=== PATIENT | female | born 1960 | race Caucasian/White ===

== ENCOUNTER 2024-04-07 14:23 | Emergency (ER) | payer SELFPAY ==
[2024-04-07 14:23] VITALS: BP 140/55; PULSE 73; RESP 14; TEMP 36.8; O2SAT 97; BMI 54.9
--- NOTE | 2024-04-07 14:25 | ED_ITS ---
<Statement entered by Hzael Mac DO - 04/09/24 15:15> I was consulted by the AIDEN, and we discussed the complexity of the problems being addressed. I approved the treatment and management plan for this patient's care in the emergency department, thus performing a substantive portion of the medical decision making. Hazel Mac DO Discharge Plan Disposition Patient Disposition: Home, Self-Care Condition: Good Referrals Follow up/Referrals: Provider,Referral, MD [Primary Care Provider] - See instructions Activity Restrictions/Add. Instructions Additional Instructions/Restrictions: Continue Tylenol and Motrin as needed for symptoms and soreness. You need to follow-up with your PCP for further investigation of the CAT scan findings today. They saw a questionable mass of undetermined significance in your left kidney. If your symptoms do not improve or you have worsening signs or symptoms please follow-up with your PCP or return to the ER as needed. Clinical Impressions Clinical Impression: Left kidney mass Fall Qualifiers: Encounter type: initial encounter Qualified Code(s): W19.XXXA - Unspecified fall, initial encounter Contusion of hip, right Qualifiers: Encounter type: initial encounter Qualified Code(s): S70.01XA - Contusion of right hip, initial encounter Print Language Print Language: Portuguese Discharge ED Provider: Ricardo Hathaway General Adult HPI General Chief complaint: PAIN Stated complaint: Fall Time Seen by Provider: 04/07/24 14:37 History of Present Illness HPI narrative: Patient presents for evaluation of an accidental fall. Patient states that she was sitting on a friend's bed at her personal skilled nursing and on attempting to arise from the bed slipped and fell landing on her right hip. She was unable to get up by herself and it took 5 people to get her on her feet. Patient states afterwards that she was able to ambulate normally with her walker. However since she had a fall she was sent to the ER for evaluation. Patient denies loss of consciousness neck pain headache altered level of consciousness or impaired mentation, she does report pain in the right thoracic rib cage posteriorly with no difficulty breathing and pain at the right hip with no numbness tingling in either lower extremity loss or motor or sensory. [facility] Disclaimer: The information contained in this section may have been updated after the patient was seen, as this information can be updated by other users. Social History Smoking Status: Never smoker alcohol intake: never current occupational status: retired and disabled Travel in the last 8 weeks: None ROS Obtained: Yes Systems reviewed as appropriate & no additional complaints except as documented Physical Exam General General appearance: alert and in no apparent distress Respiratory Respiratory exam: Present normal lung sounds bilaterally Cardiovascular Cardiovascular exam: Present regular rate Neurological Exam Neurological exam: Present alert and oriented X3 Medical Decision Making Medical Records Medical records reviewed: Yes I reviewed the patient's medical records. Screening: Per USPSTF and CDC recommendations, given the prevalence of disease in our region, it is our hospital?s policy to screen for HIV and viral Hepatitis for all patients aged 18 and over and those with ongoing risk factors. Kaden Inquiry Pt receiving controlled substance: No Vital Signs: 04/07/24 14:23 04/07/24 15:32 04/07/24 16:01 Temperature 98.2 F Temperature Source Oral Pulse Rate 67 68 Pulse Rate [Left] 73 Respiratory Rate 14 16 Blood Pressure 167/72 H 174/88 H Blood Pressure [Right Arm] 140/55 L Blood Pressure Mean 94 101 Blood Pressure Mean [Right Arm] 83 Blood Pressure Source Blood Pressure Source [Right Arm] Automatic Cuff Blood Pressure Position [Right Arm] Sitting 02 Sat by Pulse Oximetry 97 98 97 Oxygen Delivery Method Room Air 04/07/24 16:52 Temperature 98.2 F Temperature Source Oral Pulse Rate 80 Pulse Rate [Left] Respiratory Rate 18 Blood Pressure 160/85 H Blood Pressure [Right Arm] Blood Pressure Mean Blood Pressure Mean [Right Arm] Blood Pressure Source Automatic Cuff Blood Pressure Source [Right Arm] Blood Pressure Position [Right Arm] 02 Sat by Pulse Oximetry Oxygen Delivery Method Room Air Orders (Tests/Meds): ED MEDICATIONS Discontinued Medications Generic Name Dose Route Start Last Admin Trade Name Brain PRN Reason Stop Dose Admin Acetaminophen 1,000 mg 04/07/24 14:36 04/07/24 14:44 Acetaminophen 500mg Tab PO 04/07/24 14:37 1,000 mg ONCE ONE Administration Ibuprofen 800 mg 04/07/24 14:36 04/07/24 14:44 Ibuprofen 400 Mg Tablet PO 04/07/24 14:37 800 mg ONCE ONE Administration Lidocaine 1 each 04/07/24 14:36 04/07/24 14:44 Lidocaine 5% Transdermal Patch TP 04/07/24 14:37 1 each ONCE ONE Administration ORDERS Category Date Time Status CT bony pelvis Stat Cat Scan 04/07/24 14:[address] cervical spine wo con Stat Cat Scan 04/07/24 14:[address] head/brain wo con Stat Cat Scan 04/07/24 14:[address] lumbar spine wo con Stat Cat Scan 04/07/24 14:[address] thoracic spine wo con Stat Cat Scan 04/07/24 14:37 Completed Femur XR right 2 views [XR femur RT 2V] Stat Exams 04/07/24 14:53 Completed Medical Decision Narrative: In summary patient is a 64-year-old female who presents to the emergency department for evaluation of of a fall. Patient is hemodynamically stable upon arrival, afebrile. Physical exam is remarkable for right posterior rib pain and right hip pain. Patient is neurovascularly intact has no palpable bony deformities contusions abrasions or signs of trauma. Patient has full range of motion and no neurovascular deficit complaints in her bilateral lower extremities. She has no chest pain shortness of breath. Breath sounds are clear and equal bilaterally to the bases. No palpable bony deformities noted.. Differential diagnosis includes contusion versus fracture. Initial workup will be conducted with CT imagings of the dorsal spine pelvis and plain film x-rays of the femur. Initial interventions include Tylenol ibuprofen. Initial workup reviewed by me and my informal trepidation shows no acute fracture or deformity. Upon repeat evaluation patient reported modest improvement in her discomfort.. Given this patient is appropriate for discharge and is ambulatory at the time of discharge. Critical Care Critical Care Time Critical Care Time: No
--- NOTE | 2024-04-07 14:37 | CT_ITS ---
FINAL REPORT CLINICAL HISTORY: trauma, critical injury suspected COMPARISON: None FINDINGS: Axial CT images of the thoracic spine were obtained without contrast. Sagittal and coronal reformatted images were also obtained. This study was performed with techniques to keep radiation doses as low as reasonably achievable (ALARA). Individualized dose reduction techniques using automated exposure control or adjustment of mA and/or kV according to the patient's size were employed. There is no evidence of fracture. The vertebral alignment is normal. There is mild to moderate degenerative change. There is no evidence of significant canal stenosis. No paraspinous soft tissue abnormality is identified. IMPRESSION: No fracture or acute bony abnormality. No significant central canal stenosis. Reviewed, Interpreted and Dictated by Jace Hahn III, MD Transcribed by Yasmin Myrick Authenticated and [facility]
--- NOTE | 2024-04-07 14:37 | CT_ITS ---
FINAL REPORT TECHNIQUE: Axial imaging of the lumbar spine was obtained without contrast. Sagittal and coronal reformatted images were also obtained and reviewed. This study was performed with techniques to keep radiation doses as low as reasonably achievable (ALARA). Individualized dose reduction techniques using automated exposure control or adjustment of mA and/or kV according to the patient's size were employed. CLINICAL HISTORY: trauma, critical injury suspected COMPARISON: None FINDINGS: Images are suboptimal secondary to patient's body habitus. There is no fracture. The vertebral alignment is normal. There is moderate degenerative change. Moderate canal stenosis is noted at L4-5. Nonobstructing right renal stones are noted measuring up to 4 mm. The left kidney is not well-visualized but there is question of a mass in the upper pole. IMPRESSION: Multilevel degenerative change without acute bony abnormality. Questionable mass upper pole left kidney. This could be further evaluated with renal mass protocol CT. Reviewed, Interpreted and Dictated by Jace Hahn III, MD Transcribed by Yasmin Myrick Authenticated and [facility]
--- NOTE | 2024-04-07 14:37 | CT_ITS ---
FINAL REPORT CLINICAL HISTORY: trauma, critical injury suspected COMPARISON: None FINDINGS: Axial CT images of the cervical spine were obtained without contrast. Sagittal and coronal reformatted images were also obtained. This study was performed with techniques to keep radiation doses as low as reasonably achievable (ALARA). Individualized dose reduction techniques using automated exposure control or adjustment of mA and/or kV according to the patient's size were employed. Exam is suboptimal secondary to patient's body habitus. There is no evidence of fracture or dislocation. The bony alignment is normal. There is moderate degenerative change with multilevel osteophytes. There is no evidence of canal stenosis. No paraspinous soft tissue abnormality is seen. Limited images of the upper thorax are unremarkable. There is anterior displacement of the left mandibular condyle of uncertain significance. IMPRESSION: No fracture or acute bony abnormality of the cervical spine identified. Anterior displacement of the left mandibular condyle of uncertain significance. Reviewed, Interpreted and Dictated by Jace Hahn III, MD Transcribed by Yasmin Myrick Authenticated and [facility]
--- NOTE | 2024-04-07 14:37 | CT_ITS ---
FINAL REPORT CLINICAL HISTORY: trauma, critical injury suspected COMPARISON: None FINDINGS: Axial images of the head were obtained without contrast. Coronal reformatted images were also obtained.This study was performed with techniques to keep radiation doses as low as reasonably achievable (ALARA). Individualized dose reduction techniques using automated exposure control or adjustment of mA and/or kV according to the patient's size were employed. There is no evidence of intracranial hemorrhage or mass. There is moderate to severe atrophy, greater than expected for patient's age. There is no evidence of shift of the midline structures. No abnormal extra axial fluid collection is identified. No skull abnormality is seen on the bone window images. IMPRESSION: No acute intracranial abnormality. Moderate to severe atrophy, greater than expected for patient's age. Reviewed, Interpreted and Dictated by Jace Hahn III, MD Transcribed by Yasmin Myrick Authenticated and [facility]
--- NOTE | 2024-04-07 14:38 | CT_ITS ---
FINAL REPORT TECHNIQUE: Axial images through the pelvis were performed by computed tomography. Sagittal and coronal reconstruction images were performed. This study was performed with techniques to keep radiation doses as low as reasonably achievable (ALARA). Individualized dose reduction techniques using automated exposure control or adjustment of mA and/or kV according to the patient's size were employed. CLINICAL HISTORY: trauma, critical injury suspected COMPARISON: None FINDINGS: No fracture is identified. No dislocation identified. 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 No soft tissue abnormality. IMPRESSION: No acute process. Reviewed, Interpreted and Dictated by Jace Hahn III, MD Transcribed by Yasmin Myrick Authenticated and [facility]
[2024-04-07] MEDS: ACETAMINOPHEN 500MG TAB 1000 MG PO (14:44)
[2024-04-07] MEDS: LIDOCAINE 5% TRANSDERMAL PATCH 1 EACH TP (14:44)
[2024-04-07] MEDS: IBUPROFEN 400 MG TABLET 800 MG PO (14:44)
--- NOTE | 2024-04-07 14:53 | XR_ITS ---
FINAL REPORT CLINICAL HISTORY: fall, right upper leg pain COMPARISON: None FINDINGS: 3 views of the right femur were obtained. Exam is significantly limited secondary to patient body habitus. Knee arthroplasty is present. There is no acute fracture or dislocation. The joint spaces are well preserved. There is no acute soft tissue abnormality. IMPRESSION: No acute abnormality identified. Reviewed, Interpreted and Dictated by Jace Hahn III, MD Transcribed by Yasmin Myrick Authenticated and [facility]
[2024-04-07 15:32] VITALS: BP 167/72; PULSE 67; RESP 16; O2SAT 98
[2024-04-07 16:01] VITALS: BP 174/88; PULSE 68; O2SAT 97
--- NOTE | 2024-04-07 16:36 | INFXCTL.NOTE ---
UNABLE TO CONTACT STAFF AT [facility]. SPOKE WITH STAFF AT [facility], WILL ATTEMPT TO REACH STAFF FOR PT A RIDE BACK TO [facility]
--- NOTE | 2024-04-07 16:40 | PC.NURSE ---
[facility] SOMEONE [facility] PICK PT UP
[2024-04-07 16:52] VITALS: BP 160/85; PULSE 80; RESP 18; TEMP 36.8; O2SAT 96
== END 2024-04-07 16:58 | disposition home or self-care (01) ==
PROVIDERS: Emergency Provider Emergency Medicine
DX: N28.89 Other specified disorders of kidney and ureter (principal); S70.01XA Contusion of right hip, initial encounter; M25.551 Pain in right hip; R07.81 Pleurodynia; W01.0XXA Fall on same level from slipping, tripping and stumbling without subsequent striking against object, initial encounter; Y93.89 Activity, other specified; Y92.89 Other specified places as the place of occurrence of the external cause
CPT/HCPCS: 70450; 72125; 72128; 72131; 72192; 73552; 99284

== ENCOUNTER 2024-09-29 14:29 | Emergency (ER) | payer MEDICAID, SELFPAY ==
[2024-09-29] VITALS (10 sets, daily range): BP systolic 132–170; BP diastolic 48–85; PULSE 65–81; RESP 13–25; TEMP 36.9; O2SAT 94–98; BMI 56.5
--- NOTE | 2024-09-29 14:16 | ECG_ITS ---
APPROVED REPORT Exam: Resting ECG HR:77 bpm ECG Measurements Heart Rate 77 AXES DC 190 P 62 QRSd 145 QRS -67 QT 403 T 60 QTc 435 Conclusion Sinus rhythm Left axis deviation Electronically signed by : AHMET RUSHING, 09/29/2024 15:07:03
--- NOTE | 2024-09-29 14:25 | XR_ITS ---
FINAL REPORT CLINICAL HISTORY: Shortness of breath, cough, chest pain COMPARISON: None FINDINGS: A single view of the chest was obtained. The heart size is normal. The mediastinum is normal. There is minimal scarring or atelectasis at the right lung base. There are no pleural effusions. There is no pneumothorax. There is no osseous abnormality. IMPRESSION: Minimal scarring or atelectasis right lung base. Reviewed, Interpreted and Dictated by Trace Garrido MD Transcribed by Татьяна Dumont Authenticated and [facility]
--- NOTE | 2024-09-29 14:29 | [facility].EDCP ---
Discharge Plan Disposition Chief Complaint: Chest Pain Referrals Follow up/Referrals: Artis Martino APRN [Primary Care Provider] - See instructions Print Language Print Language: Panamanian Discharge ED Provider: Ricardo Hathaway HPI <Ricardo Hathaway MD - Last Filed: 09/29/24 14:58> General Chief Complaint: Chest Pain Stated Complaint: Chest Pain Time Seen by Provider: 09/29/24 14:30 History of Present Illness HPI narrative: Please note that above description of symptoms, in this electronic medical record under categorization of recalled from ER triage doctor by RN are reflective of an initial nursing assessment, however, is not reflective of my full history and physical exam that was personally taken and clarified. Consequentially, this preceding description of symptoms, which may include the patient's categorized chief complaint in the EMR, do not reflect my personal clinical impression, and the ultimate description of history of present illness and patient stated complaints should be deferred to this section of the note. Unless stated otherwise or congruent with this section of the note, additional signs, symptoms, or incongruence should be interpreted as inaccurate with my clinical impression. Related Data Allergies Allergy/AdvReac Type Severity Reaction Status Date / Time ampicillin Allergy Rash Verified 09/29/24 14:32 fluoxetine (From Prozac) Allergy Rash Verified 09/29/24 14:32 lithium Allergy Rash Verified 09/29/24 14:32 PFSH <Ricardo Hathaway MD - Last Filed: 09/29/24 14:58> [facility] Disclaimer: The information contained in this section may have been updated after the patient was seen, as this information can be updated by other users. Social History (Updated 04/07/24 @ 23:05 by LISSETH Ireland) Smoking Status: Never smoker alcohol intake: never current occupational status: retired and disabled Travel in the last 8 weeks?: None Have you lived/traveled outside [place] in past 30 days?: No Contact w/someone who lives/traveled outside US past 30 days?: No Exposure to someone with infectious disease in past 14 days?: No Do you have a fever (greater than 100.4 F or 38 C)?: No Have you tested positive for COVID-19?: No Exposed to someone with COVID-19 in past 14 days?: No Do you have a sore throat?: No Do you have a cough?: No Do you have any weakness?: No Do you have any diarrhea?: No Are you experiencing any unusual bleeding?: No Do you have any muscle aches/pain?: No Do you have any abdominal pain?: No Are you experiencing loss of taste or smell?: No <Ricardo Hathaway MD - Last Filed: 09/29/24 14:58> ROS Obtained: Yes All systems reviewed & no additional complaints except as documented Physical Exam <Ricardo Hathaway MD - Last Filed: 09/29/24 14:58> General General appearance: alert, in no apparent distress and obese Neck Neck exam: Present trachea midline Chest Chest inspection: Present normal inspection and symmetric chest wall rise Respiratory Respiratory exam: Present normal lung sounds bilaterally; Absent respiratory distress, wheezes, stridor, accessory muscle use or prolonged expiratory phase Cardiovascular Cardiovascular exam: Present regular rate, normal rhythm and other (Pulses equal and symmetric in upper and lower extremities) Extremities Exam Extremities exam: Present edema (Nonpitting, likely secondary to habitus) Neurological Exam Neurological exam: Present alert, oriented X3 and CN II-XII intact Skin Skin exam: Present warm and dry; Absent cyanosis, diaphoresis or pallor HEART Score <Ricardo Hathaway MD - Last Filed: 09/29/24 14:58> HEART Score HEART Score assessment performed?: No Critical Care <Ricardo Hathaway MD - Last Filed: 09/29/24 14:58> Critical Care Time Critical Care Time: No Medical Decision Making <Ricardo Hathaway MD - Last Filed: 09/29/24 14:58> Medical Records Medical records reviewed: Yes I reviewed the patient's medical records. Kaden Inquiry Pt receiving controlled substance: No Kaden was queried for this patient: No Vital Signs Vital Signs: 09/29/24 14:18 09/29/24 14:27 09/29/24 14:30 Temperature 98.4 F Temperature Source Oral Pulse Rate 78 81 Pulse Rate [Left] 79 Respiratory Rate 17 16 15 Blood Pressure 147/85 H 150/79 H Blood Pressure [Right Arm] 150/79 H Blood Pressure Mean [Right Arm] 102 Blood Pressure Source [Right Arm] Automatic Cuff Blood Pressure Position [Right Arm] Sitting 02 Sat by Pulse Oximetry 96 97 98 Oxygen Delivery Method Room Air 09/29/24 15:00 09/29/24 15:31 09/29/24 16:00 Temperature Temperature Source Pulse Rate 69 71 71 Pulse Rate [Left] Respiratory Rate 16 15 15 Blood Pressure 151/83 H 163/85 H 170/80 H Blood Pressure [Right Arm] Blood Pressure Mean [Right Arm] Blood Pressure Source [Right Arm] Blood Pressure Position [Right Arm] 02 Sat by Pulse Oximetry 95 97 96 Oxygen Delivery Method Room Air 09/29/24 16:30 09/29/24 17:01 09/29/24 17:31 Temperature Temperature Source Pulse Rate 69 65 75 Pulse Rate [Left] Respiratory Rate 17 13 25 H Blood Pressure 155/78 H 159/72 H 132/48 L Blood Pressure [Right Arm] Blood Pressure Mean [Right Arm] Blood Pressure Source [Right Arm] Blood Pressure Position [Right Arm] 02 Sat by Pulse Oximetry 97 98 94 L Oxygen Delivery Method Lab Data Labs: Lab Results 09/29/24 14:27: WBC 5.2, RBC 3.88 L, Hgb 11.7 L, Hct 36.8 L, MCV 94.8, MCH 30.2, MCHC 31.8, RDW 14.2, Plt Count 286, MPV 9.6, Neut % (Auto) 45.4, Lymph % (Auto) 37.1, [place] % (Auto) 11.3 H, Eos % (Auto) 4.8, Baso % (Auto) 1.2, Neut # (Auto) 2.4, Lymph # (Auto) 1.9, [place] # (Auto) 0.6, Eos # (Auto) 0.3, Baso # (Auto) 0.1, APTT 29.3, Sodium 140, Potassium 4.3, Chloride 108 H, Carbon Dioxide 27, Anion Gap 9.3, BUN 20 H, Creatinine 1.10 H, Estimated Creat Clear 45, Estimated GFR 50 L, Est GFR ( Amer) 61, Glucose 123 H, Hemoglobin A1c 5.7, Calcium 9.0, Total Bilirubin 0.5, AST 38 H, ALT 30, Alkaline Phosphatase 104, Troponin I < 0.01, NT-Pro-B Natriuret Pep 231 H, Total Protein 6.7, Albumin 4.0, Globulin 2.7, Albumin/Globulin Ratio 1.5, Lipase 65, TSH 1.24, Thyroxine (T4) 6.6 09/29/24 16:50: Urine Color Yellow, Urine Appearance Clear, Urine pH 6.5, Ur Specific [place] 1.015, Urine Protein Negative, Urine Glucose (UA) Negative, Urine Ketones Negative, Urine Blood Negative, Urine Nitrate Positive A, Urine Bilirubin Negative, Urine Urobilinogen 0.2, Ur Leukocyte Esterase 1+ A, Urine RBC 3-5, Urine WBC 10-20, Ur Squamous Epith Cells None, Urine Bacteria 3+ 09/29/24 17:36: Troponin I < 0.01 09/29/24 14:27 09/29/24 14:27 Response Orders (Tests/Meds): ED MEDICATIONS Discontinued Medications Generic Name Dose Route Start Last Admin Trade Name Freq PRN Reason Stop Dose Admin Dexamethasone 10 mg 09/29/24 14:59 09/29/24 15:08 Dexamethasone 4mg Tablet PO 09/29/24 15:00 10 mg ONCE ONE Administration ORDERS Category Date Time Status XR chest portable Stat Exams 09/29/24 14:25 Completed Complete Blood Count Auto Diff Stat Lab 09/29/24 14:27 Completed Comprehensive Metabolic Panel Stat Lab 09/29/24 14:27 Completed Hemoglobin A1C Stat Lab 09/29/24 14:27 Completed Lipase Stat Lab 09/29/24 14:27 Completed NT Pro Brain Natriuretic Pep. Stat Lab 09/29/24 14:27 Completed PTT [Activated Partial Thrombo Time] Stat Lab 09/29/24 14:27 Completed T4 (Thyroxine) Stat Lab 09/29/24 14:27 Completed TSH [Thyroid Stimulating Hormone] Stat Lab 09/29/24 14:27 Completed Troponin I Q3H Lab 09/29/24 17:36 Completed Troponin I Q3H Lab 09/29/24 20:30 Ordered Troponin I Stat Lab 09/29/24 14:27 Completed UA [Urinalysis and Microscopic] Stat Lab 09/29/24 16:50 Completed Urine Culture Stat Micro 09/29/24 16:50 Received MDM Narrative Medical Decision Narrative: 64-year-old female presenting with chest pain. She states has been going on for an hour or 2. Was not doing anything in particular and started, nonexertional, nonpositional. States that she has not had any lower extremity swelling more than usual. Some shortness of breath, but she states that she has chronic shortness of breath and does not think this is any worse. She has a history of asthma, thinks that this is what usually feels like when her asthma flares up, but has been using her inhalers. Cough is productive of yellow sputum every now and again, but has not been for a while. No fevers or chills or systemic signs or symptoms. Chest pain is substernal, does not radiate no other associated symptoms currently. History was obtained via conversation with patient and EMS. On arrival, patient hemodynamically stable, alert, [oriented x4, ][appropriate, ]GCS [15], moving all extremities spontaneously, pupils equal and reactive to light. Full physical exam performed and significant for morbidly obese patient no acute distress. Lungs are clear, cardiac exam without murmurs gallops or rubs. She is nontachypneic, nontachycardic. No outward signs of abnormality. Pulses equal and symmetric in upper and lower extremities, nonpitting lower extremity edema versus extreme adiposity. Differential includes mild asthma exacerbation, microvascular coronary artery disease, CHF, ACS, [place], coronary artery dissection, pneumothorax, PE, dissection, pericarditis, myocarditis, pneumothorax, aortic aneurysm, pneumonia, bronchitis, among others. Patient placed on continuous cardiac monitoring and continuous pulse ox with initial blood pressure 150/79, heart rate 79, saturation 96% on room air. [Independent interpretation of EKG shows] sinus rhythm 77 bpm with NM interval 190, QRS 145, QTc 435. Leftward axis, no obvious acute ischemic change. Workup independently interpreted and significant for nonactionable CBC. Chemistry with mild PAM versus CKD with no baseline with history compare. Creatinine 1.1, BUN 20. Glucose 123. Lipase negative. Troponin pending. Chest x-ray independently interpreted, no acute consolidation, but patient does have mild reactive pattern. Oral Decadron given for this. Prior to rest of labs and disposition, care handed off to oncoming physician. Drying Machine Tender disclaimer Much of this encounter note is an electronic front of house manager spoken language to printed text. Electronic front of house manager of the spoken language may permit errors. Although I have reviewed the note, some errors may still exist. <Dg Conway MD - Last Filed: 09/29/24 18:51> Vital Signs Vital Signs: 09/29/24 14:18 09/29/24 14:27 09/29/24 14:30 Temperature 98.4 F Temperature Source Oral Pulse Rate 78 81 Pulse Rate [Left] 79 Respiratory Rate 17 16 15 Blood Pressure 147/85 H 150/79 H Blood Pressure [Right Arm] 150/79 H Blood Pressure Mean [Right Arm] 102 Blood Pressure Source [Right Arm] Automatic Cuff Blood Pressure Position [Right Arm] Sitting 02 Sat by Pulse Oximetry 96 97 98 Oxygen Delivery Method Room Air 09/29/24 15:00 09/29/24 15:31 09/29/24 16:00 Temperature Temperature Source Pulse Rate 69 71 71 Pulse Rate [Left] Respiratory Rate 16 15 15 Blood Pressure 151/83 H 163/85 H 170/80 H Blood Pressure [Right Arm] Blood Pressure Mean [Right Arm] Blood Pressure Source [Right Arm] Blood Pressure Position [Right Arm] 02 Sat by Pulse Oximetry 95 97 96 Oxygen Delivery Method Room Air 09/29/24 16:30 09/29/24 17:01 09/29/24 17:31 Temperature Temperature Source Pulse Rate 69 65 75 Pulse Rate [Left] Respiratory Rate 17 13 25 H Blood Pressure 155/78 H 159/72 H 132/48 L Blood Pressure [Right Arm] Blood Pressure Mean [Right Arm] Blood Pressure Source [Right Arm] Blood Pressure Position [Right Arm] 02 Sat by Pulse Oximetry 97 98 94 L Oxygen Delivery Method Lab Data Labs: Lab Results 09/29/24 14:27: WBC 5.2, RBC 3.88 L, Hgb 11.7 L, Hct 36.8 L, MCV 94.8, MCH 30.2, MCHC 31.8, RDW 14.2, Plt Count 286, MPV 9.6, Neut % (Auto) 45.4, Lymph % (Auto) 37.1, [place] % (Auto) 11.3 H, Eos % (Auto) 4.8, Baso % (Auto) 1.2, Neut # (Auto) 2.4, Lymph # (Auto) 1.9, [place] # (Auto) 0.6, Eos # (Auto) 0.3, Baso # (Auto) 0.1, APTT 29.3, Sodium 140, Potassium 4.3, Chloride 108 H, Carbon Dioxide 27, Anion Gap 9.3, BUN 20 H, Creatinine 1.10 H, Estimated Creat Clear 45, Estimated GFR 50 L, Est GFR ( Amer) 61, Glucose 123 H, Hemoglobin A1c 5.7, Calcium 9.0, Total Bilirubin 0.5, AST 38 H, ALT 30, Alkaline Phosphatase 104, Troponin I < 0.01, NT-Pro-B Natriuret Pep 231 H, Total Protein 6.7, Albumin 4.0, Globulin 2.7, Albumin/Globulin Ratio 1.5, Lipase 65, TSH 1.24, Thyroxine (T4) 6.6 09/29/24 16:50: Urine Color Yellow, Urine Appearance Clear, Urine pH 6.5, Ur Specific [place] 1.015, Urine Protein Negative, Urine Glucose (UA) Negative, Urine Ketones Negative, Urine Blood Negative, Urine Nitrate Positive A, Urine Bilirubin Negative, Urine Urobilinogen 0.2, Ur Leukocyte Esterase 1+ A, Urine RBC 3-5, Urine WBC 10-20, Ur Squamous Epith Cells None, Urine Bacteria 3+ 09/29/24 17:36: Troponin I < 0.01 Response Orders (Tests/Meds): ED MEDICATIONS Discontinued Medications Generic Name Dose Route Start Last Admin Trade Name Freq PRN Reason Stop Dose Admin Dexamethasone 10 mg 09/29/24 14:59 09/29/24 15:08 Dexamethasone 4mg Tablet PO 09/29/24 15:00 10 mg ONCE ONE Administration ORDERS Category Date Time Status XR chest portable Stat Exams 09/29/24 14:25 Completed Complete Blood Count Auto Diff Stat Lab 09/29/24 14:27 Completed Comprehensive Metabolic Panel Stat Lab 09/29/24 14:27 Completed Hemoglobin A1C Stat Lab 09/29/24 14:27 Completed Lipase Stat Lab 09/29/24 14:27 Completed NT Pro Brain Natriuretic Pep. Stat Lab 09/29/24 14:27 Completed PTT [Activated Partial Thrombo Time] Stat Lab 09/29/24 14:27 Completed T4 (Thyroxine) Stat Lab 09/29/24 14:27 Completed TSH [Thyroid Stimulating Hormone] Stat Lab 09/29/24 14:27 Completed Troponin I Q3H Lab 09/29/24 17:36 Completed Troponin I Q3H Lab 09/29/24 20:30 Ordered Troponin I Stat Lab 09/29/24 14:27 Completed UA [Urinalysis and Microscopic] Stat Lab 09/29/24 16:50 Completed Urine Culture Stat Micro 09/29/24 16:50 Received MDM Narrative Medical Decision Narrative: 64-year-old female presenting with chest pain. She states has been going on for an hour or 2. Was not doing anything in particular and started, nonexertional, nonpositional. States that she has not had any lower extremity swelling more than usual. Some shortness of breath, but she states that she has chronic shortness of breath and does not think this is any worse. She has a history of asthma, thinks that this is what usually feels like when her asthma flares up, but has been using her inhalers. Cough is productive of yellow sputum every now and again, but has not been for a while. No fevers or chills or systemic signs or symptoms. Chest pain is substernal, does not radiate no other associated symptoms currently. History was obtained via conversation with patient and EMS. On arrival, patient hemodynamically stable, alert, [oriented x4, ][appropriate, ]GCS [15], moving all extremities spontaneously, pupils equal and reactive to light. Full physical exam performed and significant for morbidly obese patient no acute distress. Lungs are clear, cardiac exam without murmurs gallops or rubs. She is nontachypneic, nontachycardic. No outward signs of abnormality. Pulses equal and symmetric in upper and lower extremities, nonpitting lower extremity edema versus extreme adiposity. Differential includes mild asthma exacerbation, microvascular coronary artery disease, CHF, ACS, [place], coronary artery dissection, pneumothorax, PE, dissection, pericarditis, myocarditis, pneumothorax, aortic aneurysm, pneumonia, bronchitis, among others. Patient placed on continuous cardiac monitoring and continuous pulse ox with initial blood pressure 150/79, heart rate 79, saturation 96% on room air. [Independent interpretation of EKG shows] sinus rhythm 77 bpm with NM interval 190, QRS 145, QTc 435. Leftward axis, no obvious acute ischemic change. Workup independently interpreted and significant for nonactionable CBC. Chemistry with mild PAM versus CKD with no baseline with history compare. Creatinine 1.1, BUN 20. Glucose 123. Lipase negative. Troponin pending. Chest x-ray independently interpreted, no acute consolidation, but patient does have mild reactive pattern. Oral Decadron given for this. Prior to rest of labs and disposition, care handed off to oncoming physician. Drying Machine Tender disclaimer Much of this encounter note is an electronic front of house manager spoken language to printed text. Electronic front of house manager of the spoken language may permit errors. Although I have reviewed the note, some errors may still exist. Reassessment this is Dr. Conway I took over from Dr. Hathaway pending second troponin which was undetectably low. Of note urinalysis was ordered which had positive nitrites and leukocyte esterase however after reviewing with the patient she has no urinary symptoms including frequency urgency dysuria etc. Therefore will not act on this clinically. Likely contaminant. Patient's labs and imaging were reviewed and were essentially unremarkable. Patient states she is feeling better she was given some steroids earlier presumably for a possible asthma exacerbation but she has no signs or symptoms of that at the moment. Overall patient remained stable no cardiopulmonary emergency identified she has been advised to follow-up closely with her outpatient physicians and return with any worsening of her symptoms.
[2024-09-29 14:36] LABS: Basophils # 0.1 K/mm3 (0-0.2); Basophils % 1.2 % (0.1-2.0); Eosinophils # 0.3 Kmm3 (0.0-0.4); Eosinophils % 4.8 % (0.1-12.0); Hematocrit 36.8 % (37.0-47.0); Hemoglobin 11.7 g/dL (12.2-16.2); Lymphocytes # 1.9 K/mm3 (0.7-4.5); Lymphocytes % 37.1 % (10-50); Mean Corpuscular HGB Conc 31.8 g/dL (31.8-35.4); Mean Corpuscular Hemoglobin 30.2 pg (27.0-31.2); Mean Corpuscular Volume 94.8 fl (81-99); Mean Platelet Volume 9.6 fl (7.4-10.4); Monocytes # 0.6 K/mm3 (0.1-1.0); Monocytes % 11.3 % (1.7-9.3); Neutrophils # 2.4 K/mm3 (1.8-7.8); Neutrophils % 45.4 % (37.0-80.0); Nucleated Red Blood Cells # 0 10^3/uL; Nucleated Red Blood Cells % 0 %; Platelet Count 286 K/mm3 (142-424); Red Blood Count 3.88 M/mm3 (4.20-5.40); Red Cell Distribution Width 14.2 % (11.5-17.5); Red Cell Distribution Width-SD 49.1 fL; White Blood Count 5.2 K/mm3 (4.8-10.8)
[2024-09-29 14:45] LABS: Chloride 108 mmol/L (98-107)
[2024-09-29 14:46] LABS: Potassium 4.3 mmoL/L (3.5-5.1); Sodium 140 mmol/L (136-145)
[2024-09-29 14:48] LABS: Alanine Aminotransferase 30 U/L (12-78); Albumin/Globulin Ratio 1.5 (1.1-1.8); Alkaline Phosphatase 104 U/L (38-126); Anion Gap 9.3 mEq/L (5-15); Aspartate Amino Transferase 38 U/L (14-36); Bilirubin,Total 0.5 mg/dl (0.2-1.3); Blood Urea Nitrogen 20 mg/dl (7-17); Carbon Dioxide 27 mmol/L (22.0-30.0); Creatinine Clearance Estimated 45 mL/min (50-200); Estimated Glomerular Filt Rate 50 ml/min (>60); GFR (African American) 61 ML/MIN (>60); Globulin 2.7 g/dL (1.3-3.2); Total Protein,Serum 6.7 g/dl (6.3-8.2)
[2024-09-29 14:49] LABS: Glucose 123 mg/dl (74-100); Lipase 65 U/L (23-300)
[2024-09-29 14:55] LABS: Activated Partial Thrombo Time 29.3 seconds (22.8-30.6)
[2024-09-29 15:00] LABS: NT Pro Brain Natriuretic Pep. 231 pg/mL (0-125)
[2024-09-29 15:02] LABS: Troponin I < 0.01 ng/ml (0.00-0.034)
[2024-09-29 15:06] LABS: T4 (Thyroxine) 6.6 ug/dl (5.53-11.0)
[2024-09-29] MEDS: DEXAMETHASONE 4MG TABLET 10 MG PO (15:08)
[2024-09-29 15:20] LABS: Thyroid Stimulating Hormone 1.24 uIU/mL (0.465-4.68)
[2024-09-29 15:41] LABS: Hemoglobin A1C 5.7 % (4.0-6.0)
[2024-09-29 16:56] LABS: Microscopic, Urine URINE MICROSCOPIC (MICROSCOPIC)
[2024-09-29 16:58] LABS: Appearance,Urine CLEAR (Clear); Bilirubin,Urine Negative (Negative); Blood, Urine Negative (Negative); Color,Urine YELLOW (Yellow); Glucose,Urine (UA) Negative (Negative); Ketones,Urine Negative (Negative); Leukocyte Esterase,Urine 1+ (Negative); Nitrate,Urine POSITIVE (Negative); PH,Urine 6.5 (5.0-8.5); Protein,Urine Negative (Negative); Specific Gravity, Urine 1.015 (1.005-1.030); Urobilinogen,Urine 0.2 EU/dl (0.2)
[2024-09-29 17:39] LABS: Bacteria,Urine 3+ /lpf
[2024-09-29 18:14] LABS: Troponin I < 0.01 ng/ml (0.00-0.034)
--- NOTE | 2024-10-01 17:34 | PC.NURSE ---
I s/w Dr Conway regarding pt's urine culture results. States, patient had no sx of UTI in the ED, likely contaminant . no new meds ordered.
== END 2024-09-29 19:15 | disposition home or self-care (01) ==
PROVIDERS: Student in an Organized Health Care Education/Training Program; Emergency Provider Emergency Medicine; PCP Nurse Practitioner Acute Care
DX: R07.89 Other chest pain (principal)
CPT/HCPCS: 71045; 80053; 81001; 83036; 83690; 83880; 84436; 84443; 84484; 85025; 85730; 87086; 87088; 87186; 93005; 99284; J8540

== ENCOUNTER 2025-03-01 04:05 | Emergency (ER) | payer MEDICARE, MEDICAID, SELFPAY ==
--- OUTSIDE RECORDS SUMMARY | 2025-01-31 20:00 | XMS_ITS | Clinical Summary ---
Author Organization Unknown Care Team Providers Care Analysis Tester Name Role Phone NII COLLATOR, NURIS Unavailable Unavailable JONATHAN PT, YEN Unavailable Unavailable MARYCRUZ PLANNING CONSULTANT, JOCELYNE Unavailable Unavailable Payers Payer Name Policy Type Policy Number Effective Date Expira tion Date [employer].AUTH [id number] Problems Condition Name Condition Details Condition Category Status Onset Date Resolution Date Last Treatment Date Treating Clinician Comments OTHER SPECIFIED CHRONIC OBSTRUCTIVE PULMONARY DISEASE Active 8 00:00: 00 HYPERTENSIVE CHRONIC KIDNEY DISEASE 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 CHR KDNY Active 11-07 00:00: 00 TYPE 2 DIABETES MELLITUS W DIABETIC CHRONIC KIDNEY DISEASE Active 11-07 00:00: 00 CHRONIC KIDNEY DISEASE, STAGE 3 UNSPECIFIED Active 11-07 00:00: 00 GENERALIZED ANXIETY DISORDER Active 11-07 00:00: 00 POLYOSTEOART HRITIS, UNSPECIFIED Active 11-07 00:00: 00 BORDERLINE PERSONALITY DISORDER Active 11-07 00:00: 00 CONSTIPATION , UNSPECIFIED Active 11-07 00:00: 00 SCHIZOAFFECT SHANNON DISORDER, UNSPECIFIED Active 11-07 00:00: 00 HYPOTHYROIDI SM, UNSPECIFIED Active 11-07 00:00: 00 IRON DEFICIENCY ANEMIA, UNSPECIFIED Active 11-07 00:00: 00 OBSTRUCTIVE SLEEP APNEA (ADULT) (PEDIATRIC) Active 11-07 00:00: 00 INSOMNIA, UNSPECIFIED Active 11-07 00:00: 00 ALLERGIC RHINITIS, UNSPECIFIED Active 11-07 00:00: 00 GASTRO-ESOPH AGEAL REFLUX DISEASE WITHOUT ESOPHAGITIS Active 11-07 00:00: 00 PURE HYPERCHOLEST EROLEMIA, UNSPECIFIED Active 11-07 00:00: 00 MENIERE'S DISEASE, UNSPECIFIED EAR Active 11-07 00:00: 00 PRESENCE OF ARTIFICIAL KNEE JOINT, BILATERAL Active 11-07 00:00: 00 Allergies, Adverse Reactions, Alerts Allergy Name Allergy Type Status Severity Reaction(s) Onset Date Inactive Date Treating Clinician Comments AMPICILLIN Propensity to adverse reactions Active 11-07 15:21: 14 LITHIUM Propensity to adverse reactions Active 11-07 15:21: 19 FLUOXETINE Propensity to adverse reactions Active 11-07 15:21: 26 Medications Ordered Medication Name Filled Medication Name Start Date Stop Date Current Medication? Ordering Clinician Indication Dosage Frequency Signature (SIG) Comments Components meclizine 25 mg tablet 10-27 00:00: 00 Yes [id number] DIZZINESS 1 tablet EVERY 8 HOURS 1 tablet EVERY 8 HOURS (route: oral) Med Classific ation: Gastroint estinal Therapy Agents acetaminoph en 500 mg tablet 10-11 00:00: 00 Yes [id number] PAIN 1 tablet EVERY 6 HOURS 1 tablet EVERY 6 HOURS (route: oral) Med Classific ation: Analgesic , Anti-infl ammatory or Antipyret ic benzonatate 100 mg capsule 10-11 00:00: 00 Yes [id number] COUGH 1 capsule EVERY 8 HOURS 1 capsule EVERY 8 HOURS (route: oral) Med Classific ation: Respirato ry Therapy Agents clonazepam 1 mg tablet 10-11 00:00: 00 Yes [id number] SEIZURES 1 tablet 2 TIMES DAILY 1 tablet 2 TIMES DAILY (route: oral) Med Classific ation: Central Nervous System Agents Stiolto Respimat 2.5 mcg-2.5 mcg/actuati on solution for inhalation 10-11 00:00: 00 Yes [id number] SHORTNESS OF BREATH 2 puff DAILY 2 puff DAILY (route: inhalation ) Med Classific ation: Respirato ry Therapy Agents azelastine 137 mcg (0.1 %) nasal spray 10-06 00:00: 00 Yes [id number] ALLERGIES 2 spray 2 TIMES DAILY 2 spray 2 TIMES DAILY (route: nasal) Med Classific ation: Respirato ry Therapy Agents Ventolin HFA 90 mcg/actuati on aerosol inhaler 10-06 00:00: 00 Yes [id number] SHORTNESS OF BREATH 1-2 puff EVERY 6 HOURS 1-2 puff EVERY 6 HOURS (route: inhalation ) Med Classific ation: Respirato ry Therapy Agents amlodipine 5 mg tablet 11-07 00:00: 00 Yes [id number] BLOOD PRESSURE 1 tablet BEDTIME 1 tablet BEDTIME (route: oral) Med Classific ation: Cardiovas cular Therapy Agents atorvastati n 20 mg tablet 11-07 00:00: 00 Yes [id number] CHOLESTEROL 1 tablet BEDTIME 1 tablet BEDTIME (route: oral) Med Classific ation: Cardiovas cular Therapy Agents escitalopra m 20 mg tablet 11-07 00:00: 00 Yes [id number] MOOD 1 tablet DAILY 1 tablet DAILY (route: oral) Med Classific ation: Central Nervous System Agents famotidine 20 mg tablet 11-07 00:00: 00 Yes [id number] GERD 1 tablet 2 TIMES DAILY 1 tablet 2 TIMES DAILY (route: oral) Med Classific ation: Gastroint estinal Therapy Agents ferrous sulfate 325 mg (65 mg iron) tablet 11-07 00:00: 00 Yes [id number] SUPPLEMENTA L 1 tablet 2 TIMES DAILY 1 tablet 2 TIMES DAILY (route: oral) Med Classific ation: Electroly te Balance-N utritiona l Products Fiber Laxative (calcium polycarboph il) 625 mg tablet 11-07 00:00: 00 Yes [id number] BOWEL 1 tablet BEDTIME 1 tablet BEDTIME (route: oral) Med Classific ation: Gastroint estinal Therapy Agents levothyroxi ne 150 mcg tablet 11-07 00:00: 00 Yes [id number] THYROID 1 tablet DAILY 1 tablet DAILY (route: oral) Med Classific ation: Endocrine melatonin 3 mg tablet 11-07 00:00: 00 Yes [id number] SLEEP 1 tablet BEDTIME 1 tablet BEDTIME (route: oral) Med Classific ation: Central Nervous System Agents montelukast 10 mg tablet 11-07 00:00: 00 Yes [id number] SHORTNESS OF BREATH 1 tablet DAILY 1 tablet DAILY (route: oral) Med Classific ation: Respirato ry Therapy Agents Vitamin B-12 1,000 mcg tablet 11-07 00:00: 00 Yes [id number] SUPPLEMENTA L 1 tablet DAILY 1 tablet DAILY (route: oral) Med Classific ation: Electroly te Balance-N utritiona l Products Vitamin C 500 mg tablet 11-07 00:00: 00 Yes [id number] SUPPLEMENTA L 2 tablet DAILY 2 tablet DAILY (route: oral) Med Classific ation: Electroly te Balance-N utritiona l Products Vitamin D2 1,250 mcg (50,000 unit) capsule 11-07 00:00: 00 Yes [id number] SUPPLEMENTA L 1 capsule WEEKLY 1 capsule WEEKLY (route: oral) Med Classific ation: Electroly te Balance-N utritiona l Products lamotrigine 100 mg tablet 11-07 00:00: 00 Yes [id number] SEIZURES 1.5 tablet BEDTIME 1.5 tablet BEDTIME (route: oral) Med Classific ation: Central Nervous System Agents Vital Signs Vital Name Observation Time Observation Value Commen ts Temperature 2025-02-01 16:29:00.000 97.3 [degF] Temperature 2025-01-24 14:48:00.000 98.6 [degF] Temperature 2025-01-19 13:39:00.000 98.3 [degF] Temperature 2025-01-09 12:24:00.000 98 [degF] Pulse 2025-02-01 16:29:00.000 70 /min Pulse 2025-01-24 14:48:00.000 92 /min Pulse 2025-01-19 13:39:00.000 95 /min Pulse 2025-01-09 12:24:00.000 90 /min O2 Saturation (%) 2025-02-01 16:29:00.000 95 % O2 Saturation (%) 2025-01-19 13:39:00.000 95 % O2 Saturation (%) 2025-01-09 12:24:00.000 97 % Respirations 2025-02-01 16:29:00.000 18 /min Respirations 2025-01-24 14:48:00.000 16 /min Respirations 2025-01-19 13:39:00.000 18 /min Respirations 2025-01-09 12:24:00.000 18 /min Systolic Blood Pressure 2025-02-01 16:29:00.000 126 mm [Hg] Systolic Blood Pressure 2025-01-24 14:48:00.000 146 mm [Hg] Systolic Blood Pressure 2025-01-19 13:39:00.000 142 mm [Hg] Systolic Blood Pressure 2025-01-09 12:24:00.000 160 mm [Hg] Diastolic Blood Pressure 2025-02-01 16:29:00.000 70 mm [Hg] Diastolic Blood Pressure 2025-01-24 14:48:00.000 80 mm [Hg] Diastolic Blood Pressure 2025-01-19 13:39:00.000 88 mm [Hg] Diastolic Blood Pressure 2025-01-09 12:24:00.000 100 m m[Hg] Plan of Treatment Planned Activity Planned Date Details Comments Future Scheduled Test AGENCY MAY PERFORM A RESUMPTION OF CARE VISIT FOLLOWING ANY HOSPITAL ADMISSION. PT TO EVALUATE, OBSERVE / ASSESS, AND MONITOR, PLANNING CONSULTANT TO OBSERVE AND MONITOR, PROVIDE SKILLED THERAPEUTIC INTERVENTION, ACTIVITY, EDUCATION, AND TRAINING TO ADDRESS; [code = AGENCY MAY PERFORM A RESUMPTION OF CARE VISIT FOLLOWING ANY HOSPITAL ADMISSION. PT TO EVALUATE, OBSERVE / ASSESS, AND MONITOR, PLANNING CONSULTANT TO OBSERVE AND MONITOR, PROVIDE SKILLED THERAPEUTIC INTERVENTION, ACTIVITY, EDUCATION, AND TRAINING TO ADDRESS;] Future Scheduled Test THERAPEUTI C EXERCISES AND ESTABLISHING A HOME EXERCISE PROGRAM (PT/PLANNING CONSULTANT) [code = THERAPEUTIC EXERCISES AND ESTABLISHING A HOME EXERCISE PROGRAM (PT/PLANNING CONSULTANT)] Future Scheduled Test SIT TO/FRO M STAND TRANSFERS (PT/PLANNING CONSULTANT) [code = SIT TO/FROM STAND TRANSFERS (PT/PLANNING CONSULTANT)] Future Scheduled Test PT/PLANNING CONSULTANT TO PROVIDE GAIT TRAINING FOR IMPROVED MOBILITY AND /OR TO NORMALIZE GAIT PATTERN [code = PT/PLANNING CONSULTANT TO PROVIDE GAIT TRAINING FOR IMPROVED MOBILITY AND /OR TO NORMALIZE GAIT PATTERN] Future Scheduled Test NEUROMUSCU LAR RE-EDUCATION / BALANCE / POSTURAL CONTROL (PT) [code = NEUROMUSCULAR RE-EDUCATION / BALANCE / POSTURAL CONTROL (PT)] Goal 2025-01-02 Patient Goal - T O HAVE LESS PAIN, INDEPENDENCE WITH FUNCTIONAL ACTIVITIES WITHIN FACILITY Goal 2025-02-01 Patient Goal - T O HAVE LESS PAIN, INDEPENDENCE WITH FUNCTIONAL ACTIVITIES WITHIN FACILITY Goal Provider Goal - Goal Provider Goal - PT LTG: PATIENT WILL DEMONSTRATE IMPROVED FUNCTIONAL STRENGTH EVIDENCED BY FIVE TIMES SIT TO STAND TEST (CUT SCORE >12 SECONDS INDICATES AN INCREASED FALL RISK) IMPROVING FROM 18 SECONDS TO LESS THAN OR EQUAL TO 12 SECONDS WITHIN 8 WEEKS IN ORDER TO DECREASE FALL RISK PT LTG: PATIENT WILL DEMONSTRATE INDEPENDENCE AND COMPLIANCE WITH HEP WITHIN 4 WEEKS Goal Provider Goal - PT STG: PATIENT WILL DEMONSTRATE IMPROVED ABILITY TO PERFORM SIT TO/FROM STAND TRANSFERS TO REDUCE THE RISK OF SKIN BREAKDOWN AND REDUCE FALL RISK FROM SBA TO IND WITHIN 8 WEEKS Goal Provider Goal - PT LTG: PATIENT WILL DEMONSTRATE IMPROVED AMBULATION FROM SBA 200FT TO IND 300FT WITH APPROPRIATE AD WITHIN 8 WEEKS. Goal Provider Goal - PT LTG: PATIENT WILL DEMONSTRATE REDUCED FALL RISK EVIDENCED BY TUG TEST (CUT SCORE >11 SECONDS INDICATES INCREASED FALL RISK) IMPROVING FROM 20 SECONDS TO LESS THAN OR EQUAL TO 11 SECONDS WITHIN 8 WEEKS Reason for Visit INDEPENDENT WITH USE OF ASSISTIVE DEVICE Encounters Start Date/Time End Date/Time Encounter Type Admission Type Attending [facility] Care Department Encounter ID Discharge Date Discharge Status Discharge Condition Discharge Reason Percent Goals Met 2025-01-06 00:00:00 2025-02-01 00:00:00 Outpatient RECERTIFIC YEN CERVANTES [facility] [id number] 2025-02-01 00:00:00 DISCHARGE TO HOME OR SELF CARE INDEPENDEN T WITH USE OF ASSISTIVE DEVICE HH - NO LONGER REQUIRES SKILLED CARE 100.00
[2025-03-01] VITALS (12 sets, daily range): BP systolic 103–156; BP diastolic 63–85; PULSE 68–75; RESP 16–24; TEMP 36.7–37; O2SAT 94–99; BMI 55.7
--- NOTE | 2025-03-01 04:09 | HMH.EDGENADL ---
Discharge Plan Disposition Patient Disposition: Home, Self-Care Condition: Good Prescriptions Prescriptions: No Action atorvastatin 20 mg tablet 20 mg PO DAILY quetiapine 200 mg tablet 200 mg PO HS clonazepam 1 mg tablet 1 mg PO DIRECTED melatonin 3 mg tablet 3 mg PO HS amlodipine 5 mg tablet 5 mg PO DAILY famotidine 20 mg tablet 20 mg PO DAILY ascorbic acid (vitamin C) 500 mg tablet 500 mg PO DAILY ferrous sulfate [FeroSul] 325 mg (65 mg iron) tablet 325 mg PO DAILY levothyroxine 150 mcg tablet 150 mcg PO DAILY calcium polycarbophil [Fiber-Lax] 625 mg tablet 625 mg PO DAILYP PRN (Reason: Constipation) montelukast 10 mg tablet 10 mg PO DAILY cyanocobalamin (vitamin B-12) 1,000 mcg tablet, sublingual 1,000 mcg sublingual DAILY azelastine 137 mcg (0.1 %) spray,non-aerosol 137 mcg INTRANASAL DAILY albuterol sulfate [Ventolin HFA] 90 mcg/actuation HFA aerosol inhaler 2 puff INHALATION Q6HP PRN (Reason: Shortness Of Breath Or Wheezing) lamotrigine 100 mg tablet 100 mg PO DAILY loratadine [Allergy Relief (loratadine)] 10 mg tablet 10 mg PO DAILY escitalopram oxalate 20 mg tablet 20 mg PO DAILY Stiolto Respimat 2.5-2.5 mcg/actuation mist 2 spray INHALATION DAILY Referrals Follow up/Referrals: Provider,Referral, MD [Primary Care Provider, Medical] - See instructions Activity Restrictions/Add. Instructions Additional Instructions/Restrictions: You have viral syndrome. You may take Ibuprofen and Tylenol to improve your symptoms. If you have any new or worsening symptoms please return. Clinical Impressions Clinical Impression: Acute viral syndrome Chest pain Qualifiers: Chest pain type: unspecified Qualified Code(s): R07.9 - Chest pain, unspecified Print Language Print Language: Kyrgyz Discharge ED Provider: Lj Fulton General Adult HPI <Rosendo Ramirez MD - Last Filed: 03/01/25 06:57> General Chief complaint: Chest Pain Stated complaint: chest pain Time Seen by Provider: 03/01/25 04:09 History of Present Illness HPI narrative: 65-year-old female with history of COPD, obesity, GERD, hiatal hernia presents with multiple complaints. She reports that she has been having cough with yellow sputum production over the last couple of days. No reported fevers. She has several roommates and thinks one of them may have COVID or flu. She reports shortness of breath. She had chest pain tonight approximately 5 out of 10 centrally located. Epigastric. It has since resolved. Related Data Home Medications ?Medication ?Instructions ?Recorded ?Confirmed albuterol sulfate 90 mcg/actuation 2 puff inhalation Q6HP PRN 10/01/24 10/01/24 aerosol inhaler (Ventolin HFA) Shortness Of Breath Or Wheezing amlodipine 5 mg tablet 5 mg PO DAILY 10/01/24 10/01/24 ascorbic acid (vitamin C) 500 mg 500 mg PO DAILY 10/01/24 10/01/24 tablet atorvastatin 20 mg tablet 20 mg PO DAILY 10/01/24 10/01/24 azelastine 137 mcg (0.1 %) nasal 137 mcg intranasal DAILY 10/01/24 10/01/24 spray calcium polycarbophil 625 mg 625 mg PO DAILYP PRN Constipation 10/01/24 10/01/24 tablet (Fiber-Lax) clonazepam 1 mg tablet 1 mg PO DIRECTED 10/01/24 10/01/24 cyanocobalamin (vitamin B-12) 1,000 mcg sublingual DAILY 10/01/24 10/01/24 1,000 mcg sublingual tablet escitalopram oxalate 20 mg tablet 20 mg PO DAILY 10/01/24 10/01/24 famotidine 20 mg tablet 20 mg PO DAILY 10/01/24 10/01/24 ferrous sulfate 325 mg (65 mg 325 mg PO DAILY 10/01/24 10/01/24 iron) tablet (FeroSul) lamotrigine 100 mg tablet 100 mg PO DAILY 10/01/24 10/01/24 levothyroxine 150 mcg tablet 150 mcg PO DAILY 10/01/24 10/01/24 loratadine 10 mg tablet (Allergy 10 mg PO DAILY 10/01/24 10/01/24 Relief (loratadine)) melatonin 3 mg tablet 3 mg PO HS 10/01/24 10/01/24 montelukast 10 mg tablet 10 mg PO DAILY 10/01/24 10/01/24 quetiapine 200 mg tablet 200 mg PO HS 10/01/24 10/01/24 tiotropium 2.5 mcg-olodaterol 2.5 2 spray inhalation DAILY 10/01/24 10/01/24 mcg/actuation mist for inhalation (Stiolto Respimat) Allergies Allergy/AdvReac Type Severity Reaction Status Date / Time ampicillin Allergy Rash Verified 09/29/24 14:32 fluoxetine (From Prozac) Allergy Rash Verified 09/29/24 14:32 lithium Allergy Rash Verified 09/29/24 14:32 PFSH <Rosendo Ramirez MD - Last Filed: 03/01/25 06:57> [facility] Disclaimer: The information contained in this section may have been updated after the patient was seen, as this information can be updated by other users. Social History (Updated 04/07/24 @ 23:05 by LISSETH Ireland) Smoking Status: Never smoker alcohol intake: never current occupational status: retired and disabled Travel in the last 8 weeks?: None <Rosendo Ramirez MD - Last Filed: 03/01/25 06:57> ROS Obtained: Yes All systems reviewed & no additional complaints except as documented Physical Exam <Rosendo Ramirez MD - Last Filed: 03/01/25 06:57> General General appearance: alert, in no apparent distress and obese Head Head exam: atraumatic and normocephalic Eye Eye exam: Present normal appearance, PERRL and EOMI ENT ENT exam: Present normal oropharynx and normal external ear exam Neck Neck exam: Present normal inspection and full ROM Chest Chest inspection: Present normal inspection and symmetric chest wall rise; Absent tenderness Respiratory Respiratory exam: Present normal lung sounds bilaterally; Absent respiratory distress Cardiovascular Cardiovascular exam: Present regular rate and normal rhythm Abdominal Exam Abdominal exam: Present soft; Absent distention, tenderness or guarding Extremities Exam Extremities exam: Present normal inspection; Absent edema or joint swelling Back Exam Back exam: Present normal inspection; Absent tenderness Neurological Exam Neurological exam: Present alert and oriented X3; Absent motor sensory deficit Psychiatric Psychiatric exam: Present normal affect and normal mood Skin Skin exam: Present warm, dry and normal color Lymphatic Lymphatic Findings: no adenopathy Medical Decision Making <Rosendo Ramirez MD - Last Filed: 03/01/25 06:57> Medical Records Medical records reviewed: Yes I reviewed the patient's medical records. Screening: Per USPSTF and CDC recommendations, given the prevalence of disease in our region, it is our hospital?s policy to screen for HIV and viral Hepatitis for all patients aged 18 and over and those with ongoing risk factors. Kaden Inquiry Pt receiving controlled substance: No Kaden was queried for this patient: No Vital Signs: 03/01/25 04:21 03/01/25 04:26 03/01/25 04:27 Temperature 98.6 F 98.6 F Temperature Source Oral Pulse Rate 74 74 Pulse Rate [Right] 74 Respiratory Rate 23 23 Blood Pressure 136/63 Blood Pressure [Right Arm] 136/63 Blood Pressure Mean [Right Arm] 87 02 Sat by Pulse Oximetry 95 95 Oxygen Delivery Method Room Air Room Air 03/01/25 05:01 03/01/25 05:29 03/01/25 05:31 Temperature Temperature Source Pulse Rate 72 Pulse Rate [Right] Respiratory Rate 22 19 24 Blood Pressure 156/68 H 156/68 H 133/64 Blood Pressure [Right Arm] Blood Pressure Mean [Right Arm] 02 Sat by Pulse Oximetry 96 Oxygen Delivery Method Room Air 03/01/25 06:01 03/01/25 06:32 03/01/25 06:33 Temperature Temperature Source Pulse Rate 75 Pulse Rate [Right] Respiratory Rate 16 17 Blood Pressure 142/65 H 103/85 L 103/85 L Blood Pressure [Right Arm] Blood Pressure Mean [Right Arm] 02 Sat by Pulse Oximetry 99 Oxygen Delivery Method Room Air 03/01/25 07:01 03/01/25 07:31 Temperature Temperature Source Pulse Rate 72 Pulse Rate [Right] Respiratory Rate 19 17 Blood Pressure 133/71 137/68 Blood Pressure [Right Arm] Blood Pressure Mean [Right Arm] 02 Sat by Pulse Oximetry 94 L Oxygen Delivery Method Lab Data Lab results reviewed: Yes I reviewed the patient's lab results. Lab Results 03/01/25 04:15: WBC 10.3, RBC 4.03 L, Hgb 12.4, Hct 38.5, MCV 95.5, MCH 30.8, MCHC 32.2, RDW 13.2, Plt Count 313, MPV 9.6, Neut % (Auto) 64.5, Lymph % (Auto) 23.4, [place] % (Auto) 7.9, Eos % (Auto) 3.3, Baso % (Auto) 0.6, Neut # (Auto) 6.6, Lymph # (Auto) 2.4, [place] # (Auto) 0.8, Eos # (Auto) 0.3, Baso # (Auto) 0.1, Sodium 140, Potassium 4.2, Chloride 104, Carbon Dioxide 27, Anion Gap 13.2, BUN 13, Creatinine 0.90, Estimated Creat Clear 48, Estimated GFR 63, Est GFR ( Amer) 76, Glucose 108 H, Calcium 9.2, Total Bilirubin 1.0, AST 26, ALT 18, Alkaline Phosphatase 110, Troponin I < 0.01, Total Protein 6.9, Albumin 4.2, Globulin 2.7, Albumin/Globulin Ratio 1.6, Lipase 57, HCV Ab SYLVESTER w/Rflx PCR Qn Negative, HIV Ag/Ab Combo Qual Negative 03/01/25 04:18: SARS-CoV-2 (PCR) Not detected, Influenza A Untype (PCR) Not detected, Influenza Type B (PCR) Not detected 03/01/25 07:20: Troponin I < 0.01 03/01/25 04:15 03/01/25 04:15 Orders (Tests/Meds): ED MEDICATIONS Discontinued Medications Generic Name Dose Route Start Last Admin Trade Name Freq PRN Reason Stop Dose Admin Acetaminophen 1,000 mg 03/01/25 04:16 03/01/25 04:32 Acetaminophen 500mg Tab PO 03/01/25 04:17 1,000 mg ONCE ONE Administration Belladonna Alkaloids 60 ml 03/01/25 04:16 03/01/25 04:32 Belladonna Alkaloids 60 Ml Ml PO 03/01/25 04:17 60 ml ONCE ONE Administration ORDERS Category Date Time Status CXR --portable [XR chest portable] Stat Exams 03/01/25 04:16 Completed CBC w/Auto Diff [Complete Blood Count Auto Diff] Stat Lab 03/01/25 04:15 Completed CMP [Comprehensive Metabolic Panel] Stat Lab 03/01/25 04:15 Completed HIV Combo Stat Lab 03/01/25 04:15 Completed Hepatitis C Ab Qual. W/ RFX Stat Lab 03/01/25 04:15 Completed Lipase Stat Lab 03/01/25 04:15 Completed Rapid PCR Covid and Flu A/B Stat Lab 03/01/25 04:18 Completed Troponin I Q3H Lab 03/01/25 04:15 Completed Troponin I Q3H Lab 03/01/25 07:20 Completed ECG Data Tracing #1: I reviewed this ECG and interpreted as documented below: Sinus rhythm, prolonged QRS, no significant ST elevation. ECG initial impression date: 03/01/25 ECG initial impression time: 04:17 HEART Score History (anamnesis): Slightly suspicious ECG: Non-specific disturbance Age: 45-65 years Risk factors: 1-2 risk factors Troponin: </= normal limit HEART Score: 3 Medical Decision Narrative: 65-year-old female with history of COPD, obesity, GERD, hiatal hernia presents for a few days of cough productive of sputum, as well as an episode of chest pain that resolved prior to arrival. History was obtained via interactive discussion with patient, EMS, chart review. On arrival, patient is [afebrile, hemodynamically stable, satting appropriately, alert, oriented x4, GCS 15], moving all extremities spontaneously. Full physical exam performed and significant for no significant physical exam abnormalities, no abdominal tenderness. Differential includes but is not limited to ACS, viral/bacterial pneumonia, COPD exacerbation. Patient was given aspirin and nitro prior to arrival by EMS. She was given Tylenol and GI cocktail in our ER. Workup initiated including CBC CMP troponin lipase EKG chest x-ray. I considered obtaining D-dimer, but patient's presentation is not consistent with PE, much more consistent with viral/bacterial infectious etiology. On re-evaluation, patient [remains afebrile, HD stable.] Laboratory workup independently interpreted by me and significant for negative initial troponin, negative lipase, no significant electrolyte derangement. Imaging independently interpreted by me and significant for no obvious lobar opacity.. See radiology read for full review of final results. Patient was placed in ED observation status for serial cardiac enzymes. At this time care handed off to oncoming physician. <Lj Fulton, - Last Filed: 03/01/25 08:14> Vital Signs: 03/01/25 04:21 03/01/25 04:26 03/01/25 04:27 Temperature 98.6 F 98.6 F Temperature Source Oral Pulse Rate 74 74 Pulse Rate [Right] 74 Respiratory Rate 23 23 Blood Pressure 136/63 Blood Pressure [Right Arm] 136/63 Blood Pressure Mean [Right Arm] 87 02 Sat by Pulse Oximetry 95 95 Oxygen Delivery Method Room Air Room Air 03/01/25 05:01 03/01/25 05:29 03/01/25 05:31 Temperature Temperature Source Pulse Rate 72 Pulse Rate [Right] Respiratory Rate 22 19 24 Blood Pressure 156/68 H 156/68 H 133/64 Blood Pressure [Right Arm] Blood Pressure Mean [Right Arm] 02 Sat by Pulse Oximetry 96 Oxygen Delivery Method Room Air 03/01/25 06:01 03/01/25 06:32 03/01/25 06:33 Temperature Temperature Source Pulse Rate 75 Pulse Rate [Right] Respiratory Rate 16 17 Blood Pressure 142/65 H 103/85 L 103/85 L Blood Pressure [Right Arm] Blood Pressure Mean [Right Arm] 02 Sat by Pulse Oximetry 99 Oxygen Delivery Method Room Air 03/01/25 07:01 03/01/25 07:31 Temperature Temperature Source Pulse Rate 72 Pulse Rate [Right] Respiratory Rate 19 17 Blood Pressure 133/71 137/68 Blood Pressure [Right Arm] Blood Pressure Mean [Right Arm] 02 Sat by Pulse Oximetry 94 L Oxygen Delivery Method Lab Data Lab Results 03/01/25 04:15: WBC 10.3, RBC 4.03 L, Hgb 12.4, Hct 38.5, MCV 95.5, MCH 30.8, MCHC 32.2, RDW 13.2, Plt Count 313, MPV 9.6, Neut % (Auto) 64.5, Lymph % (Auto) 23.4, [place] % (Auto) 7.9, Eos % (Auto) 3.3, Baso % (Auto) 0.6, Neut # (Auto) 6.6, Lymph # (Auto) 2.4, [place] # (Auto) 0.8, Eos # (Auto) 0.3, Baso # (Auto) 0.1, Sodium 140, Potassium 4.2, Chloride 104, Carbon Dioxide 27, Anion Gap 13.2, BUN 13, Creatinine 0.90, Estimated Creat Clear 48, Estimated GFR 63, Est GFR ( Amer) 76, Glucose 108 H, Calcium 9.2, Total Bilirubin 1.0, AST 26, ALT 18, Alkaline Phosphatase 110, Troponin I < 0.01, Total Protein 6.9, Albumin 4.2, Globulin 2.7, Albumin/Globulin Ratio 1.6, Lipase 57, HCV Ab SYLVESTER w/Rflx PCR Qn Negative, HIV Ag/Ab Combo Qual Negative 03/01/25 04:18: SARS-CoV-2 (PCR) Not detected, Influenza A Untype (PCR) Not detected, Influenza Type B (PCR) Not detected 03/01/25 07:20: Troponin I < 0.01 Orders (Tests/Meds): ED MEDICATIONS Discontinued Medications Generic Name Dose Route Start Last Admin Trade Name Brain PRN Reason Stop Dose Admin Acetaminophen 1,000 mg 03/01/25 04:16 03/01/25 04:32 Acetaminophen 500mg Tab PO 03/01/25 04:17 1,000 mg ONCE ONE Administration Belladonna Alkaloids 60 ml 03/01/25 04:16 03/01/25 04:32 Belladonna Alkaloids 60 Ml Ml PO 03/01/25 04:17 60 ml ONCE ONE Administration ORDERS Category Date Time Status CXR --portable [XR chest portable] Stat Exams 03/01/25 04:16 Completed CBC w/Auto Diff [Complete Blood Count Auto Diff] Stat Lab 03/01/25 04:15 Completed CMP [Comprehensive Metabolic Panel] Stat Lab 03/01/25 04:15 Completed HIV Combo Stat Lab 03/01/25 04:15 Completed Hepatitis C Ab Qual. W/ RFX Stat Lab 03/01/25 04:15 Completed Lipase Stat Lab 03/01/25 04:15 Completed Rapid PCR Covid and Flu A/B Stat Lab 03/01/25 04:18 Completed Troponin I Q3H Lab 03/01/25 04:15 Completed Troponin I Q3H Lab 03/01/25 07:20 Completed HEART Score HEART Score: 3 Medical Decision Narrative: 65-year-old female with history of COPD, obesity, GERD, hiatal hernia presents for a few days of cough productive of sputum, as well as an episode of chest pain that resolved prior to arrival. History was obtained via interactive discussion with patient, EMS, chart review. On arrival, patient is [afebrile, hemodynamically stable, satting appropriately, alert, oriented x4, GCS 15], moving all extremities spontaneously. Full physical exam performed and significant for no significant physical exam abnormalities, no abdominal tenderness. Differential includes but is not limited to ACS, viral/bacterial pneumonia, COPD exacerbation. Patient was given aspirin and nitro prior to arrival by EMS. She was given Tylenol and GI cocktail in our ER. Workup initiated including CBC CMP troponin lipase EKG chest x-ray. I considered obtaining D-dimer, but patient's presentation is not consistent with PE, much more consistent with viral/bacterial infectious etiology. On re-evaluation, patient [remains afebrile, HD stable.] Laboratory workup independently interpreted by me and significant for negative initial troponin, negative lipase, no significant electrolyte derangement. Imaging independently interpreted by me and significant for no obvious lobar opacity.. See radiology read for full review of final results. Patient was placed in ED observation status for serial cardiac enzymes. At this time care handed off to oncoming physician. Lj Fulton, DO I received care of this patient at shift change. She tells me that she has been having cough with production of phlegm as well as rhinorrhea and congestion for the last several days. She states that prior to arrival she had began experiencing some chest pain. She states that her pain has resolved and she feels significantly improved. At the time of shift change her workup was largely negative including her chest x-ray which shows no focal consolidation on my independent interpretation. We were pending a second troponin which has resulted less than 0.01. I have a very low suspicion for cardiac ischemia at this time. Furthermore on my examination the patient does have reproducible chest wall tenderness which could very likely be costochondritis in the setting of a viral illness. Ultimately her evaluation today has been very reassuring and she is stable for discharge home. Likely etiology of symptoms is a virus. Procedures <Rosendo Ramirez MD - Last Filed: 03/01/25 06:57> Risk/Benefits of Procedure(s) Were Explained: Yes Critical Care <Rosendo Ramirez MD - Last Filed: 03/01/25 06:57> Critical Care Time Critical Care Time: No
--- NOTE | 2025-03-01 04:16 | XR_ITS ---
PROCEDURE INFORMATION: Exam: XR Chest Exam date and time: 03/01/2025 4:20 AM Age: 65 years old Clinical indication: Cough and shortness of breath; Additional info: Productive cough, SOA TECHNIQUE: Imaging protocol: Radiologic exam of the chest. Views: 1 view. COMPARISON: CR XR CHEST PORTABLE 09/29/2024 2:27 PM FINDINGS: Lungs: Unremarkable. No consolidation. Pleural spaces: Unremarkable. No pleural effusion. No pneumothorax. Heart/Mediastinum: Unremarkable. No cardiomegaly. Bones/joints: Unremarkable. IMPRESSION: No acute findings.
--- NOTE | 2025-03-01 04:17 | ECG_ITS ---
APPROVED REPORT Exam: Resting ECG HR:73 bpm ECG Measurements Heart Rate 73 AXES IL 129 P 32 QRSd 147 QRS -65 QT 395 T 56 QTc 421 Conclusion SINUS RHYTHM LEFT AXIS DEVIATION [QRS AXIS < -30] INTRAVENTRICULAR CONDUCTION DELAY [130+ ms QRS DURATION] ABNORMAL ECG UNCONFIRMED REPORT Electronically signed by : ELEONORA ROMERO, 03/01/2025 23:03:49
[2025-03-01 04:25] LABS: Hematocrit 38.5 % (37.0-47.0); Hemoglobin 12.4 g/dL (12.2-16.2); Immature Granulocytes % 0.3 %; Mean Corpuscular HGB Conc 32.2 g/dL (31.8-35.4); Mean Corpuscular Hemoglobin 30.8 pg (27.0-31.2); Mean Corpuscular Volume 95.5 fl (81-99); Nucleated Red Blood Cells % 0 %; Platelet Count 313 K/mm3 (142-424); Red Blood Count 4.03 M/mm3 (4.20-5.40); Red Cell Distribution Width-SD 46.4 fL; White Blood Count 10.3 K/mm3 (4.8-10.8)
[2025-03-01 04:26] LABS: Coronavirus 19, PCR Not Detected (NotDetected); Influenza A, PCR Not Detected (NotDetected); Influenza B, PCR Not Detected (NotDetected)
[2025-03-01 04:29] LABS: Alanine Aminotransferase 18 U/L (12-78); Albumin Level 4.2 g/dl (3.5-5.0); Albumin/Globulin Ratio 1.6 (1.1-1.8); Alkaline Phosphatase 110 U/L (38-126); Anion Gap 13.2 mEq/L (5-15); Aspartate Amino Transferase 26 U/L (14-36); Bilirubin,Total 1.0 mg/dl (0.2-1.3); Blood Urea Nitrogen 13 mg/dl (7-17); Calcium 9.2 mg/dl (8.4-10.2); Carbon Dioxide 27 mmol/L (22.0-30.0); Chloride 104 mmol/L (98-107); Creatinine Clearance Estimated 48 mL/min (50-200); Creatinine,Serum 0.90 mg/dl (0.52-1.04); Estimated Glomerular Filt Rate 63 ml/min (>60); GFR (African American) 76 ML/MIN (>60); Globulin 2.7 g/dL (1.3-3.2); Glucose 108 mg/dl (74-100); Lipase 57 U/L (23-300); Potassium 4.2 mmoL/L (3.5-5.1); Sodium 140 mmol/L (136-145); Total Protein,Serum 6.9 g/dl (6.3-8.2)
[2025-03-01] MEDS: ACETAMINOPHEN 500MG TAB 1000 MG PO (04:32)
[2025-03-01] MEDS: BELLADONNA ALKALOIDS 60 ML ML PO (04:32)
[2025-03-01 04:45] LABS: Troponin I < 0.01 ng/ml (0.00-0.034)
[2025-03-01 05:35] LABS: Hepatitis C Ab Qual. W/ RFX NEGATIVE (Negative)
[2025-03-01 08:00] LABS: Troponin I < 0.01 ng/ml (0.00-0.034)
--- NOTE | 2025-03-01 08:19 | PC.NURSE ---
Spoke with [facility] about pt being discharged. [facility] staff reported that one of the staff members will provide transportation.
--- NOTE | 2025-03-01 10:18 | PC.NURSE ---
[facility] called at 0941 and said that this patient is on the list for the bus, and that they are unsure of a time they would be here to get her.
--- NOTE | 2025-03-01 10:22 | PC.NURSE ---
[facility] to pickup patient for transport back home
== END 2025-03-01 10:30 | disposition home or self-care (01) ==
PROVIDERS: Emergency Medicine; Emergency Provider Student in an Organized Health Care Education/Training Program
DX: R07.9 Chest pain, unspecified (principal); R06.02 Shortness of breath; R05.9 Cough, unspecified; B34.9 Viral infection, unspecified
CPT/HCPCS: 71045; 80053; 83690; 84484; 85025; 86803; 87389; 87636; 93005; 99284; 99285